=== PATIENT | female | born 1985 | race American Indian/Alaskan Native ===

== ENCOUNTER 2020-02-18 03:00 | Emergency (ER) | payer MEDICAID ==
--- NOTE | 2020-02-18 03:53 | XRay Report ---
Right foot 3 views INDICATION: Right foot pain IMPRESSION: Metallic pin projects over the distal right great toe metatarsal. No fracture or subluxat ion. Signer Name: Trever Harrington MD Signed: 02/18/2020 3:48 AM Workstation Name: [id number]
[2020-02-18] MEDS ORDERED: LIDOCAINE-MPF (1%) 10 MG/1 ML VIAL 5 ML INFILTRATI ONE (05:15)
[2020-02-18] MEDS ORDERED: ACETAMINOPHEN 500 MG TAB PO ONE (05:15)
[2020-02-18] MEDS ORDERED: IBUPROFEN 800 MG TAB PO ONE (05:15)
[2020-02-18] MEDS ORDERED: cephALEXin 500 MG CAP PO ONE (05:49)
[2020-02-18] MEDS ORDERED: DIPHtheria,PERTUSSIS(ACELL),TETANUS VACCINE/PF 0.5 ML VIAL IM ONE ×2 (05:50→05:52)
[2020-02-18] MEDS ORDERED: cephALEXin 500 MG CAP ONE (05:51)
[2020-02-18] MEDS ORDERED: NEOMY 3.5 MG/BACIT 400 UNITS/POLY B 5000 UNITS/GM OINT PACKET TP ONE ×2 (05:51→07:00)
--- NOTE | 2020-02-18 05:54 | Emergency Department Report ---
ED Lower Extremity HPI - General Chief Complaint: Extremity Injury, Lower Stated Complaint: FOOT PAIN Source: EMS Mode of arrival: Ambulatory Limitations: No Limitations - History of Present Illness Initial Comments: Patient is a 34-year-old morbidly obese -Qatari female with no past medical history who presents to the ED with complaint of acute onset right plantar foot pain after she accidentally stepped on an metallic needle which was lying on the carpeted floor about 2 hours ago. Patient states that she tried to remove the needle but a piece of it remained on the right foot. Patient states that she is unable bear weight on the right foot because of pain. Patient states that she is not up-to-date with her tetanus vaccinations. Patient denies numbness and tingling or weakness of right foot, fall, nausea and vomiting, chest pain or shortness of breath. MD Complaint: foot injury (right foot puncture wound with foreign body in the foot) -: Sudden, hour(s) (2) Injury: Foot: Right (right plantar foot) Type of Injury: laceration (puncture wound with a needle in th eright foot), puncture wound Place: home Severity: severe Severity scale (0 -10): 7 Improves With: nothing Worsens With: weight bearing, movement, palpation Context: walking, other (stepped on a needle on floor that got stuck in right plantar foot) Associated Symptoms: able to partially bear weight. denies: swelling, numbness, tingling, unable to bear weight - Related Data Previous Rx's Medication Instructions Recorded Last Taken Type Ciprofloxacin HCl [Ciprofloxacin 500 mg PO Q12HR #20 tab 02/18/20 Unknown Rx TAB] Ibuprofen [Motrin] 800 mg PO Q8HR PRN #30 tablet 02/18/20 Unknown Rx Allergies Allergy/AdvReac Type Severity Reaction Status Date / Time No Known Allergies Allergy Unverified 02/18/20 03:04 ED Review of Systems ROS: Stated complaint: FOOT PAIN Other details as noted in HPI Constitutional: denies: chills, fever Eyes: denies: eye pain, eye discharge, vision change ENT: denies: ear pain, throat pain Respiratory: denies: cough, shortness of breath, wheezing Cardiovascular: denies: chest pain, palpitations Endocrine: no symptoms reported Gastrointestinal: denies: abdominal pain, nausea, diarrhea Genitourinary: denies: urgency, dysuria, discharge Musculoskeletal: arthralgia (right foot pain due to a puncture wound), other (foreign body stuck in the right plantar foot). denies: back pain, joint swelling Skin: other (Puncture wound of right foot with foreign body in tissue). denies: rash, lesions Neurological: denies: headache, weakness, paresthesias Psychiatric: denies: anxiety, depression Hematological/Lymphatic: denies: easy bleeding, easy bruising ED Past Medical Hx - Past Medical History Hx Hypertension: Yes Additional medical history: ovarian cyst, fibroids - Social History Smoking Status: Never Smoker Substance Use Type: Marijuana - Medications Home Medications: Home Medications Medication Instructions Recorded Confirmed Last Taken Type Ciprofloxacin HCl [Ciprofloxacin 500 mg PO Q12HR #20 tab 02/18/20 Unknown Rx TAB] Ibuprofen [Motrin] 800 mg PO Q8HR PRN #30 tablet 02/18/20 Unknown Rx ED Physical Exam - General Limitations: No Limitations General appearance: alert, in no apparent distress - Head Head exam: Present: atraumatic, normocephalic, normal inspection - Eye Eye exam: Present: normal appearance, PERRL, EOMI Pupils: Present: normal accommodation - ENT ENT exam: Present: normal exam, normal orophraynx, mucous membranes moist, TM's normal bilaterally, normal external ear exam - Neck Neck exam: Present: normal inspection, full ROM. Absent: tenderness - Respiratory Respiratory exam: Present: normal lung sounds bilaterally. Absent: respiratory distress, wheezes, rhonchi, chest wall tenderness, decreased breath sounds - Cardiovascular Cardiovascular Exam: Present: regular rate, normal rhythm, normal heart sounds. Absent: systolic murmur, diastolic murmur, rubs, gallop - GI/Abdominal GI/Abdominal exam: Present: soft, normal bowel sounds. Absent: tenderness, rebound, hyperactive bowel sounds - Extremities Exam Extremities exam: Present: normal inspection, full ROM, tenderness (Palpable right plantar foot tenderness due to a puncture wound from a foreign body stuck in the tissues of the right foot), normal capillary refill - Back Exam Back exam: Present: normal inspection, full ROM. Absent: tenderness, muscle spasm, paraspinal tenderness - Neurological Exam Neurological exam: Present: alert, oriented X3, CN II-XII intact, normal gait, other - Psychiatric Psychiatric exam: Present: normal affect, normal mood - Skin Skin exam: Present: warm, dry, intact, normal color, other (Puncture wound on right plantar foot with foreign body stuck in the tissues of the right foot). Absent: rash ED Lower Extremity MDM - Radiology Data Radiology results: report reviewed, image reviewed Findings [facility] [address] [place] [address] XRay Report Signed Patient: ORLANDO SERNA MR#: [id number] : 1985 Acct:[id number] Age/Sex: 34 / F ADM Date: 02/18/20 Loc: ED Attending Dr: Ordering Physician: ADELAIDA TAYLOR MD Date of Service: 02/18/20 Procedure(s): XR foot 3+V RT Accession Number(s): [id number] cc: ADELAIDA TAYLOR MD Fluoro Time In Minutes: Right foot 3 views INDICATION: Right foot pain IMPRESSION: Metallic pin projects over the distal right great toe metatarsal. No fracture or subluxation. Signer Name: Trever Harrington MD Signed: 02/18/2020 3:48 AM Workstation Name: [id number] Transcribed By: BC Dictated By: Trever Harrington MD Electronically Authenticated By: Trever Harrington MD Signed Date/Time: 02/18/20347 DD/ 7 TD/TT: - Medical Decision Making If Plantar Puncture Wound, Discussed with Patient: Risk of Infection, Risk of Foreign Body in W This is a 34-year-old morbidly obese -Qat[place] female with no past medica l history who presents to the ED with complaint of acute onset right plantar foot pain after she accidentally stepped on an metallic needle which was lying on the carpeted floor about 2 hours ago. Patient states that she tried to remove the needle but a piece of it remained on the right foot. Patient states that she is unable bear weight on the right foot because of pain. Patient states that she is not up-to-date with her tetanus vaccinations. In the ED, patient is alert and oriented x3 and is not in distress with normal vital signs. Patient was treated for pain in the ED and also received booster tetanus vaccinations. Right foot x-ray shows a metallic pin that projects over the distal right great toe metatarsal. No fracture or subluxation. The right foot over the great toe metatarsal was cleaned thoroughly and a local anesthetic lidocaine 2% with epi injected around the puncture wound. When anesthesia was fully achieved, an incision was made around the puncture wound and using hemostat to probe the metallic pin, the pin was successfully removed with a hemostat. Patient tolerated the procedure well. The wound was cleaned and Neosporin ointment applied over the puncture wound. The wound was then dressed appropriately and the patient was discharged home on pain medication and prophylactic antibiotics, ciprofloxacin 500 mg twice a day for 10 days Patient was advised to follow-up with her primary care physician in 7 to 10 days for reevaluation. Patient was advised to return to the ED immediately if symptoms get worse. - Differential Diagnosis puncture wound; foreign body in tissue; fracture of right foot Critical care attestation.: If time is entered above; I have spent that time in minutes in the direct care of this critically ill patient, excluding procedure time. ED Disposition Clinical Impression: Puncture wound of right foot with foreign body Qualifiers: Encounter type: initial encounter Qualified Code(s): S91.341A - Puncture wound with foreign body, right foot, initial encounter Disposition: TO HOME OR SELFCARE Is pt being admited?: No Does the pt Need Aspirin: No Condition: Stable Instructions: Puncture Wound (ED), Soft Tissue Foreign Body (ED) Additional Instructions: Take medication with food, drink plenty of fluids and follow-up with your primary care physician in 7 to 10 days for reevaluation. Return to the ED immediately if symptoms get worse. Prescriptions: Ciprofloxacin HCl [Ciprofloxacin TAB] 500 mg PO Q12HR #20 tab Ibuprofen [Motrin] 800 mg PO Q8HR PRN #30 tablet PRN Reason: Pain , Severe (7-10) Referrals: [facility] [Provider Group] - 7-10 days Time of Disposition: 05:53 Print Language: KHMER
[2020-02-18 05:56] VITALS: BP 143/84
[2020-02-18] MEDS ORDERED: BACITRACIN/POLYMYXIN B OINT 28.35 GM TP ONE (06:27)
== END 2020-02-18 06:49 | disposition home or self-care (01) ==
LOC: ED 03:00
DX: S91.341A Puncture wound with foreign body, right foot, initial encounter (principal); E66.01 Morbid (severe) obesity due to excess calories; I10 Essential (primary) hypertension; F12.90 Cannabis use, unspecified, uncomplicated; Z79.899 Other long term (current) drug therapy; Z68.44 Body mass index [BMI] 60.0-69.9, adult; X58.XXXA Exposure to other specified factors, initial encounter; Y93.89 Activity, other specified; Y92.009 Unspecified place in unspecified non-institutional (private) residence as the place of occurrence of the external cause; Y99.8 Other external cause status
CPT/HCPCS: 90471; 90715; A6250

== ENCOUNTER 2021-03-07 14:01 | Emergency (ER) | payer MEDICAID ==
[2021-03-07 14:19] VITALS: BP 135/84
[2021-03-07 17:46] LABS: Bacteria,Urine 1+ /HPF (Negative); Bilirubin,Urine NEG (Negative); Blood,Urine NEG (Negative); Color,Urine Yellow (Yellow); Mucus,Urine 3+ /HPF; Protein,Urine <15 mg/dL mg/dL (Negative); Urobilinogen,Urine < 2.0 mg/dL (<2.0)
[2021-03-07 17:52] LABS: HCG Qualitative,Urine Negative (Negative)
--- NOTE | 2021-03-07 18:58 | Emergency Department Report ---
ED Female HPI - General Chief complaint: Urogenital-Female Stated complaint: PELVIC PAIN AND OVARIES Time Seen by Provider: 03/07/21 15:38 Source: patient Mode of arrival: Ambulatory Limitations: No Limitations - History of Present Illness Initial comments: 35-year-old morbid obese -Ira[place] female presents to the emergency room complaining of pelvic pain since last night. Patient denies any dysuria but does report urinary frequency denies any vaginal bleeding vaginal discharge. Last menstrual period was 6-21. Past medical history of hypertension. Denies any surgical history. 1 para 0. MD Complaint: pelvic pain -: Last night Location: suprapubic Radiation: non-radiating Severity: severe Severity scale (0 -10): 9 Quality: sharp Consistency: intermittent Worsens with: movement Are you Now?: No - Related Data Previous Rx's Medication Instructions Recorded Last Taken Type Ciprofloxacin HCl [Ciprofloxacin 500 mg PO Q12HR #20 tab 02/18/20 Unknown Rx TAB] Ibuprofen [Motrin] 800 mg PO Q8HR PRN #30 tablet 02/18/20 Unknown Rx traMADoL [Ultram 50 MG tab] 50 mg PO Q6HR PRN #12 tablet 03/07/21 Unknown Rx Allergies Allergy/AdvReac Type Severity Reaction Status Date / Time No Known Allergies Allergy Verified 03/07/21 21:43 ED Review of Systems ROS: Stated complaint: PELVIC PAIN AND OVARIES Other details as noted in HPI Comment: All other systems reviewed and negative ED Past Medical Hx - Past Medical History Previous Medical History?: Yes Hx Hypertension: Yes Additional medical history: ovarian cyst, fibroids - Surgical History Past Surgical History?: No - Social History Smoking Status: Never Smoker - Medications Home Medications: Home Medications Medication Instructions Recorded Confirmed Last Taken Type Ciprofloxacin HCl [Ciprofloxacin 500 mg PO Q12HR #20 tab 02/18/20 Unknown Rx TAB] Ibuprofen [Motrin] 800 mg PO Q8HR PRN #30 tablet 02/18/20 Unknown Rx traMADoL [Ultram 50 MG tab] 50 mg PO Q6HR PRN #12 tablet 03/07/21 Unknown Rx ED Physical Exam - General Limitations: No Limitations General appearance: alert, in no apparent distress, obese - Head Head exam: Present: atraumatic, normocephalic - Eye Eye exam: Present: normal appearance - ENT ENT exam: Present: normal external ear exam - Neck Neck exam: Present: normal inspection, full ROM - Respiratory Respiratory exam: Present: normal lung sounds bilaterally. Absent: respiratory distress, accessory muscle use - Cardiovascular Cardiovascular Exam: Present: regular rate, normal rhythm - GI/Abdominal GI/Abdominal exam: Present: soft, tenderness (Right lower quadrant), normal bowel sounds. Absent: distended - Extremities Exam Extremities exam: Present: normal inspection, full ROM - Back Exam Back exam: Present: normal inspection - Neurological Exam Neurological exam: Present: alert, oriented X3, normal gait - Psychiatric Psychiatric exam: Present: normal affect, normal mood - Skin Skin exam: Present: warm, dry, intact, normal color. Absent: rash ED Course Vital Signs 03/07/21 14:18 Temperature 98.3 F Pulse Rate 62 Respiratory 20 Rate Blood Pressure 135/84 [Right] O2 Sat by Pulse 97 Oximetry ED Medical Decision Making - Lab Data Result diagrams: 03/07/21 19:19 03/07/21 19:19 - Radiology Data Radiology results: [place] [address] Cat Scan Report Signed Patient: ORLANDO SERNA MR#: [id number] : 1985 Acct:[id number] Age/Sex: 35 / F ADM Date: 03/07/21 Loc: ED Attending Dr: Ordering Physician: VALENTINA RAMSEY Date of Service: 03/07/21 Procedure(s): CT abdomen pelvis w con Accession Number(s): [id number] cc: VALENTINA RAMSEY CT ABDOMEN AND PELVIS WITH CONTRAST INDICATION / CLINICAL INFORMATION: Pt complains of L.U.Q. pain and tenderness.. TECHNIQUE: Axial CT images were obtained through the abdomen and pelvis following the administration of intravenous contrast. All CT scans at this location are performed using CT dose reduction for ALARA by means of automated exposure control. COMPARISON: None available. FINDINGS: LOWER CHEST: No significant abnormality. LIVER: No significant abnormality. GALLBLADDER: No significant abnormality. PANCREAS: No significant abnormality. SPLEEN: No significant abnormality. ADRENALS: No significant abnormality. KIDNEYS / URETERS: No significant abnormality. URINARY BLADDER: No significant abnormality. REPRODUCTIVE ORGANS: No significant abnormality. STOMACH / SMALL BOWEL: No significant abnormality. COLON: No significant abnormality. APPENDIX: No significant abnormality. PERITONEUM: No free fluid. No free air. No fluid collection. LYMPH NODES: No significant adenopathy. AORTA / ARTERIES: No significant abnormality. IVC / VEINS: No significant abnormality. SKELETAL SYSTEM: No significant abnormality. ADDITIONAL FINDINGS: None. IMPRESSION: 1. No acute abdominopelvic abnormality. Signer Name: Jeannine Chung MD Signed: 03/07/2021 9:58 PM Workstation Name: [id number] Transcribed By: SS Dictated By: JEANNINE CHUNG Electronically Authenticated By: JEANNINE CHUNG Signed Date/Time: 03/07/212157 DD/ 55 TD/TT: Print Cancel - Medical Decision Making 35-year-old morbid obese -[place] female presents to the emergency room complaining of pelvic pain since last night. Patient denies any dysuria but does report urinary frequency denies any vaginal bleeding vaginal discharge. Last menstrual period was 6-21. Past medical history of hypertension. Denies any surgical history. 1 para 0. Labs are within normal limits. CT scan is within normal limits. Critical care attestation.: If time is entered above; I have spent that time in minutes in the direct care of this critically ill patient, excluding procedure time. ED Disposition Clinical Impression: Abdominal pain Disposition: DC-01 TO HOME OR SELFCARE Is pt being admited?: No Does the pt Need Aspirin: No Condition: Stable Instructions: Abdominal Pain, Adult, [id number] Additional Instructions: Labs are stable and nonactionable, CT scan is within normal limits. Recommend pain medication and follow-up with [facility]. Prescriptions: traMADoL [Ultram 50 MG tab] 50 mg PO Q6HR PRN #12 tablet PRN Reason: Pain Referrals: PRIMARY CARE, [Primary Care Provider] - 3-5 Days [facility] [Provider Group] - 3-5 Days [facility] [Provider Group] - 3-5 Days Forms: Work/School Release Form(ED)
[2021-03-07 19:50] LABS: Alanine Aminotransferase 11 units/L (7-56); Blood Urea Nitrogen 12 mg/dL (7-17); Calcium 9.2 mg/dL (8.4-10.2); Hemolysis Index 23
[2021-03-07 19:56] LABS: BUN/Creatinine Ratio 20
[2021-03-07 20:18] LABS: Basophils % (Auto) 0.2 % (0.0-1.8); Eosinophils % (Auto) 0.6 % (0.0-4.3); Hemoglobin 10.9 gm/dl (10.1-14.3); Lymphocytes # (Auto) 1.9 K/mm3 (1.2-5.4); Lymphocytes % (Auto) 34.1 % (13.4-35.0); Mean Corpuscular HGB Conc 33 % (30-34); Mean Corpuscular Volume 72 fl (79-97); Monocytes # (Auto) 0.3 K/mm3 (0.0-0.8); Monocytes % (Auto) 5.7 % (0.0-7.3); Platelet Count 263 K/mm3 (140-440); Red Blood Count 4.57 M/mm3 (3.65-5.03); Red Cell Distribution Width 16.1 % (13.2-15.2)
[2021-03-07] MEDS ORDERED: MORPHINE 4 MG/1 ML INJ IV ONE ×2 (21:36)
[2021-03-07] MEDS ORDERED: ONDANSETRON 4 MG/2 ML INJ IV ONE ×2 (21:36)
[2021-03-07] MEDS ORDERED: MORPHINE 4 MG/1 ML INJ ONE (21:37)
[2021-03-07] MEDS ORDERED: ONDANSETRON 4 MG/2 ML INJ ONE (21:37)
--- NOTE | 2021-03-07 22:03 | Cat Scan Report ---
CT ABDOMEN AND PELVIS WITH CONTRAST INDICATION / CLINICAL INFORMATION: Pt complains of L.U.Q. pain and tenderness.. TECHNIQUE: Axial CT images were obtained through the abdomen and pelvis following the administration of intraven ous contrast. All CT scans at this location are performed using CT dose reduction for ALARA by means of automated exposure control. COMPARISON: None available. FINDINGS: LOWER CHEST: No significant abnormality. LIVER: No significant abnormality. GALLBLADDER: No significant abnormality. PANCREAS: No significant abnormality. SPLEEN: No significant abnormality. ADRENALS: No significant abnormality. KIDNEYS / URETERS: No significant abnormality. URINARY BLADDER: No significant abnormality. REPRODUCTIVE ORGANS: No significant abnormality. STOMACH / SMALL BOWEL: No significant abnormality. COLON: No significant abnormality. APPENDIX: No significant abnormality. PERITONEUM: No free fluid. No free air. No fluid collection. LYMPH NODES: No significant adenopathy. AORTA / ARTERIES: No significant abnormality. IVC / VEINS: No significant abnormality. SKELETAL SYSTEM: No significant abnormality. ADDITIONAL FINDINGS: None. IMPRESSION: 1. No acute abdominopelvic abnormality. Signer Name: Swapnil Chung MD Signed: 03/07/2021 9:58 PM Workstation Name: [id number]
== END 2021-03-07 22:25 | disposition home or self-care (01) ==
LOC: ED 14:01
DX: R10.2 Pelvic and perineal pain (principal); I10 Essential (primary) hypertension; Z79.899 Other long term (current) drug therapy
CPT/HCPCS: 36415; 74177; 80053; 81001; 81025; 83690; 85025; 96374; 96375; 99284; J2270; J2405; Q9967